=== PATIENT | male | born 1995 | race Caucasian/White ===

== ENCOUNTER 2016-06-21 22:44 | Emergency (ER) | payer BC ==
[2016-06-21 22:48] VITALS: TEMP 36.9; Ht 185.4 cm
[2016-06-21] MEDS ORDERED: IBUPROFEN 600 MG TAB PO STA (23:02)
--- NOTE | 2016-06-21 23:36 | EMERGENCY ROOM VISIT NOTE ---
ED Visit Note First contact with patient: 22:57 CHIEF COMPLAINT: Left ankle injury couple hours ago HISTORY OF PRESENT ILLNESS: Patient is a healthy 20-year-old white male who sustained an injury to the left ankle with a twisting, inversion motion a few hours ago. He was running and rolled his ankle on a curb. Complains of swelling and pain. The patient is able to bear weight on the foot but with pain. Constant pain, moderate to severe, worse with movement, weight bearing, and the dependent position. No knee pain. He elevated the ankle. He denies any prior history of injuries. REVIEW OF SYSTEMS: Review of systems as per HPI. All other systems reviewed were negative. At least 6 systems reviewed. PMH: Electronic medical records are reviewed and summarized as above/below. See Problem List. SOCIAL HISTORY: Patient lives at home. College student. Lives with a roommate. PHYSICAL EXAM: Vital Signs: Reviewed Nurse's notes. MENTAL STATUS: Alert, oriented, and cooperative. The right ankle is swollen and tender over the lateral aspect but the skin is intact and there is no ligamentous instability. No pain over the 5th metatarsal or fibular head. Lisfranc joint is negative. There is no deformity. The foot and toes are warm and well-perfused. Sensation to pain and light touch is intact. EMERGENCY DEPARTMENT COURSE: X-ray per my interpretation reveals no fracture, only the soft tissue swelling. Formal radiology review is pending. A compression sleeve and gel splint were applied to the ankle under my direction and the position was satisfactory. Crutches were issued and patient was instructed on a non weight bearing gait. Differential diagnosis include foot verses ankle sprain/fracture, contusion, dislocation. Current/Historical Medications No Active Prescriptions or Reported Meds Allergies Coded Allergies: No Known Allergies (Unverified , 06/21/16) Vital Signs Date Time Temp Pulse Resp B/P Pulse Ox O2 Delivery O2 Flow Rate FiO2 06/21/16 23:42 85 18 132/86 97 06/21/16 22:48 36.9 82 20 143/62 97 Room Air Medications Administered Medications (Trade) Dose Ordered Sig/Karlos Route Start Time Stop Time Status Last Admin Dose Admin Ibuprofen (Motrin Tab) 600 mg NOW STAT PO 06/21/16 23:02 06/21/16 23:04 DC 06/21/16 23:30 600 MG Departure Information Impression Primary Impression: Left ankle sprain Prescriptions No Active Prescriptions or Reported Meds Referrals No Doctor, Assigned (PCP) Patient Instructions My [facility] Additional Instructions Ibuprofen(Motrin, Advil) may be used for fever or pain. Use 600mg every six hours as needed. Take with food. Avoid using more than 2400mg in a 24 hour period. Do not use 2400mg per day for more than three consecutive days without physician direction. Prolonged inappropriate use can lead to stomach upset or ulcers. This medication can be taken if you need to drive, work, or perform activities which may be dangerous when taking narcotic pain medication. (AND/OR) Acetaminophen(Tylenol) may be used for fever or pain. Use 1000mg every six hours as needed. Avoid using more than 3000mg in a 24 hour period. This medication can be taken if you need to drive, work, or perform activities which may be dangerous when taking narcotic pain medication. Ice compresses for 20 minutes at a time four times daily for 2-3 days. Use the gel splint and crutches as instructed. Rest and elevate your injury. Continue current medications. Return to the ER immediately for any numbness, tingling, severe pain, extreme swelling in the extremity or as needed. Followup with your family doctor or orthopedic surgery if no improvement in 5-7 days.
[2016-06-21 23:42] VITALS: BP 132/86; PULSE 85; O2SAT 97
--- NOTE | 2016-06-22 06:36 | DIAGNOSTIC IMAGING REPORT ---
LEFT ANKLE MIN 3 VIEWS ROUTINE CLINICAL HISTORY: Left ankle pain following injury. COMPARISON: None FINDINGS: Alignment of the left ankle is anatomic. There is marked lateral ankle soft tissue swelling. No acute fracture is identified. IMPRESSION: 1. No acute fracture or dislocation of the left ankle. 2. Marked lateral ankle soft tissue swelling. Electronically signed by: Omega Ribeiro M.D. 06/22/2016 6:35 AM Dictated Date/Time: 06/22/2016 6:33 AM
== END 2016-06-21 23:42 | disposition home or self-care (01) ==
LOC: C.EDB 22:45 → C.EDA 23:42
DX: S93.402A Sprain of unspecified ligament of left ankle, initial encounter (principal); X50.1XXA Overexertion from prolonged static or awkward postures, initial encounter; Y93.02 Activity, running